=== PATIENT | female | born 1985 | race Caucasian/White ===

== ENCOUNTER → 2016-06-30 | Outpatient (CLI) | payer MEDICAID ==
[~2016-06-30] MED LIST: ACET325T38 PO; ACHYD1T PO; ALPR0.25 PO; ALPR1TAB2 PO; AMOX1TAB12 PO; AMOX500C5 PO; AMOX500T2 PO; AZIT250T PO; CEPH-507 PO; DEXT5SYR; DIPH25CA79 PO; DOXY100C2 PO; FLUT16SP INH; FLUT16SP NS; FLUT16SP NSEACH; GABA300C PO; GUAI600T3; HYDR-3702 PO; HYDR-3754 PO; LEVA15HF3 INH; LISD50CA3 PO; LISD60CA PO; LRT10T PO; ONDA4TAB8 PO; PARO40TA47 PO; PHEN-639 PO; PRM25T PO; QTP100T PO; QTP25T PO; SERT25TA PO; SULF1TAB35 PO; [UNRECOGNIZED DRUG - CODE] PO; vivance PO
[2016-06-30 17:02] VITALS: BP 115/70
--- NOTE | 2016-06-30 17:02 | Urgent Care T Sheet Gen (E) ---
Intake General Temperature (Fahrenheit): 99.0 Pulse: 97 Blood Pressure Systolic: 115 Blood Pressure Diastolic: 70 Respirations: 18 SPO2: 97 Description of Symptoms Patient presents with numerous complaints. First, she wonders if she is . Notes dysuria and upset stomach. Been taking Zantac as needed. Last menstrual period was Apr 29 however she isn't 100 % certain. States she has had 2 new partners in that timeframe. Next, she complains of a bump to the forehead with a black center. First noticed last night. Though it was a zit and tried popping it. Then used a needle to poke it. No drainage. Now it is black in the center and larger than yesterday. Painful but doesn't itch or burn. Lastly, patient notes a several month history of nasal congestion and PND. Also notes a productive cough which is worse at night and in the morning. Takes Claritin daily. Has been using Flonase and been taking Mucinex intermittently. History of Present Illness Allergies: Coded Allergies: Tetanus Vaccines & Toxoid (Verified Allergy, Severe, 11/02/15) diphenhydramine (Verified Allergy, Unknown, 11/02/15) gabapentin (Verified Allergy, Unknown, 11/02/15) ibuprofen (Verified Allergy, Unknown, 11/02/15) influenza virus vaccine, specific (Verified Allergy, Unknown, 11/02/15) ketorolac (Verified Allergy, Unknown, Rash, 11/02/15) tramadol (Verified Allergy, Unknown, 11/02/15) hydromorphone (Verified Adverse Reaction, Unknown, 11/02/15) made pt feel shaky prednisolone (Verified Adverse Reaction, Unknown, 11/02/15) Made pt very angry and she was placed in [place] pregabalin (Verified Adverse Reaction, Unknown, 11/02/15) Swelling in her feet Home Meds Active Scripts Amoxicillin (Amoxil)500 Mg [id number] Mg PO QID Infection #28 CAP Ref 0 Prov:ROGER NICHOLAS 06/30/16 Ondansetron (Zofran ODT)4 Mg Tab.rapdis4 Mg PO QID PRN NAUSEA/VOMITING #20 TAB Ref 0 Prov:ROGER NICHOLAS 06/30/16 Fluticasone Propionate (Flonase Nasal [place] 50mcg/actuation)16 Gm Naspr1 Puff NSEACH DAILY #1 BTL Prov:ROGER NICHOLAS 06/30/16 Amoxicillin/Clavulanate Potassium (Augmentin 875mg/125mg)1 Each Tablet1 Tab PO BID Infection #20 TAB Ref 0 Prov:ALEKS BROOKS PA 02/29/16 Fluticasone Propionate (Flonase Nasal [place] 50mcg/actuation)16 Gm Naspr16 Gm NS DAILY #1 BTL Prov:SWEATALEKS PA 02/29/16 Amoxicillin (Amoxil)500 Mg [id number] Mg PO TID Infection 10 Days Ref 0 Prov:DEANDRE LOPEZ MD 11/02/15 Reported Medications Quetiapine Fumarate (Seroquel)100 Mg [id number] Mg PO DAILY 06/08/14 Alprazolam (Xanax)1 Mg Tablet1 Mg PO Q3HR 06/08/14 Lisdexamfetamine Dimesylate (Vyvanse)60 Mg [id number] Mg PO DAILY 06/08/14 Acetaminophen (Tylenol)325 Mg [id number] Mg PO NEEDED Ref 0 01/05/14 Sertraline HCl (Zoloft)25 Mg [id number] Mg PO DAILY 04/04/12 Respiratory Constitutional Symptoms: Malaise EENTM: Nose Congestion Respiratory: Cough Cardiovascular: No symptoms reported Gastrointestinal/Abdominal: Nausea Genitourinary: Dysuria Estimated Date of Delivery: 11/25/12 Skin: Lesions All Other Systems Reviewed Remaining Systems: All other systems reviewed with negative findings Past Ecqndha-Bgvvtl-Yzcrmv Hx Patient's Social History Alcohol Use: Denies Use Smoking Status: Never smoker Recent foreign travel: No Surgeries/Hospitalizations Hospitalization/Surgery Hx: C SECTION, ANXIETY, DEPRESSION, PALPATATIONS, FIBROMYALGIA, HX OF UTI, rheumatoid arthritis Respiratory Respiratory History: Asthma Cardiovascular Cardiovascular History: Palpitations Comment: NO IBUPROPHEN Reproductive System Sexually Transmitted Diseases: No Gastrointestinal GI/Endocrine History: None Diabetes Diabetes: No HEENT Impaired Vision: Glasses Hearing Impaired: None Psychosocial Behavior Disorders: Other, See Comment Physical Exam Physical Exam General Appearance: WD/WN No apparent distress Eyes, Ears, Nose, Throat Ex: TMs normal Pharynx normal Other (nasal congestion with thick drainage) Neck Exam: SuppleNo Lymphadenopathy Respiratory Exam: Lungs clear Normal breath sounds Cardiovascular Exam: Regular rate, rhythm Back Exam: No CVA tenderness Skin Exam: Other (dime sized black lesion noted along the L forehead, just above the eyebrow. slight erythema to surrounding skin however not warm to the touch. no drainage. doesn't appear to be full. ) Neurologic/Psychiatric Exam: Oriented times 4 (patient is sort of scattered in her answers) Progress/Orders Lab Results Labs Results: UA, UA-UHCG (positive) UA Lab Results ph 7.5 Specific [place] 1.010 Protein - Ketones - Blood trace Nitrates - Leukocyte Esterase - Departure Urgent Care Impression Impression: Primary Impression: Qualified Code: Z3A.08 - 8 weeks gestation of Additional Impressions: Skin infection Cough Departure Disposition: HOME OR SELF-CARE Condition: Stable Additional Instructions: The patient has a complicated situation. She is currently homeless. She is unsure when her LMP occurred but thinks it was Apr 29. According to that, she is 8 weeks and 6 days along. Patient states the father could be 1 of 2 guys. That said, I sent her urine for chlamydia and gonorrhea testing. Her UA was clear. At first, I asked the patient if she has seen an [facility] in the past. She said no therefore I gave her Dr Amin's information. I stepped out of the room to run her UA and at that time, I called Dr Amin's office to inform them that I would be referring a patient. I got their answering machine. After running her UA and returning to the room, the patient informs me that she called Dr Amin's office and they told her they wouldn't see her until she was 12 weeks along. I don't know what all the patient told Dr Amin's office as she called without my knowledge. She then proceeds to tell me she sees Dr Mckeon and would follow up with her. Patient complains of nausea, therefore I prescribed Zofran, which she requested as it has helped in the past. Regarding her skin infection, I started her on Amoxicillin. It may help with her cough or it may not. Cough could be related to allergies. F/U with Dr Mckeon. Return as needed Patient understands DC instructions. All questions were answered. Scripts Amoxicillin (Amoxil)500 Mg [id number] Mg PO QID Infection #28 CAP Ref 0 Prov:ROGER NICHOLAS 06/30/16 Ondansetron (Zofran ODT)4 Mg Tab.rapdis4 Mg PO QID PRN NAUSEA/VOMITING #20 TAB Ref 0 Prov:ROGER NICHOLAS 06/30/16 Fluticasone Propionate (Flonase Nasal [place] 50mcg/actuation)16 Gm Naspr1 Puff NSEACH DAILY #1 BTL Prov:ROGER NICHOLAS 06/30/16 End of report . ROGER NICHOLAS Jun 30, 2016 15:14
--- NOTE | 2016-07-05 14:24 | Urgent Care Follow Up Note (E) ---
Urgent Care Follow Up Note Chlamydia and gonorrhea were both negative. F/U with Dr Mckeon for OB care. Scripts Amoxicillin (Amoxil)500 Mg [id number] Mg PO QID Infection #28 CAP Ref 0 Prov:ROGER NICHOLAS 06/30/16 Ondansetron (Zofran ODT)4 Mg Tab.rapdis4 Mg PO QID PRN NAUSEA/VOMITING #20 TAB Ref 0 Prov:ROGER NICHOLAS 06/30/16 Fluticasone Propionate (Flonase Nasal [place] 50mcg/actuation)16 Gm Naspr1 Puff NSEACH DAILY #1 BTL Prov:ROGER NICHOLAS 06/30/16 ROGER NICHOLAS Jul 05, 2016 14:24
== END ==
LOC: MHUC 14:19
PROVIDERS: ATTEND Physician Assistant
DX: R05 Cough (principal); L08.89 Other specified local infections of the skin and subcutaneous tissue; Z3A.08 8 weeks gestation of pregnancy
CPT/HCPCS: 81002; 81025; 99214